=== PATIENT | male | born 1995 ===

== ENCOUNTER 2018-09-24 04:49 | Inpatient (IN) | payer SELFPAY ==
[2018-09-24 05:06] VITALS: BMI 26.6
--- NOTE | 2018-09-24 05:36 | ED PDOC ---
HPI: Psych/Substance Abuse Time Seen by Provider: 09/24/18 05:15 Chief Complaint (Nursing): Psychiatric Evaluation Chief Complaint (Provider): crisis eval History Per: Patient History/Exam Limitations: no limitations Suicide/Self Injury Attempted (Context): Ingestion Additional Complaint(s): 23 y/o male brought in by EMS for psych eval. Patient states he has been feeling depressed for months and yesterday attempted suicide by taking 5 Xanax 2mg tablets, 3 beers, and 10 shots of whiskey around 15:00 yesterday. Patient states he recently woke up and a friend suggested that he needed help. Patient states he wishes he didn't wake up. Patient denies homicidal ideations, hallucinations, acute physical complaints. Patient states he was diagnosed with bipolar disorder at 12 years old but did not follow up with anybody for it. Past Medical History Reviewed: Historical Data, Nursing Documentation, Vital Signs Vital Signs: Last Vital Signs Temp 98.7 F 09/24/18 05:06 Pulse 71 09/24/18 05:06 Resp 18 09/24/18 05:06 BP 155/97 H 09/24/18 05:06 Pulse Ox 99 09/24/18 05:06 - Medical History PMH: Bipolar Disorder - Surgical History Surgical History: No Surg Hx - Family History Family History: States: No Known Family Hx - Living Arrangements Living Arrangements: Alone - Social History Alcohol: > 2 Drinks/Day Drugs: Denies - Allergies Allergies/Adverse Reactions: Allergies Allergy/AdvReac Type Severity Reaction Status Date / Time No Known Allergies Allergy Verified 09/24/18 05:05 Review of Systems ROS Statement: Except As Marked, All Systems Reviewed And Found Negative Psych: Positive for: Depression, Suicidal ideation Physical Exam - Reviewed Nursing Documentation Reviewed: Yes Vital Signs Reviewed: Yes - Physical Exam Appears: Positive for: Well, Non-toxic, No Acute Distress Head Exam: Positive for: ATRAUMATIC, NORMAL INSPECTION, NORMOCEPHALIC Skin: Positive for: Normal Color Eye Exam: Positive for: Normal appearance ENT: Positive for: Normal ENT Inspection Cardiovascular/Chest: Positive for: Regular Rate, Rhythm Respiratory: Positive for: Normal Breath Sounds Gastrointestinal/Abdominal: Positive for: Normal Exam Back: Positive for: Normal Inspection Extremity: Positive for: Normal ROM Neurologic/Psych: Positive for: Alert, Oriented (x3) - ECG ECG: Positive for: Viewed By Me (reviewed by ED attending) ECG Rhythm: Positive for: Sinus Rhythm O2 Sat by Pulse Oximetry: 99 - Progress ED Course And Treament: -1:1 -cbc -cmp -alcohol -magnesium -salicylate -acetaminophen -urine drug screen -urinalysis -ekg -crisis evaluation Spoke with Magaly Power from poison control: recommends supportive care, obtain labs and correct electrolyte imbalance if any, and monitor for signs of withdrawal/agitation Disposition - Clinical Impression Clinical Impression: Suicide attempt - Disposition Disposition Time: 06:00 Condition: STABLE Forms: [employer] [facility] (Kiswahili) Patient Signed Over To: Jacky Bauman Handoff Comments: p'ing labs, crisis eval
--- NOTE | 2018-09-24 06:33 | ED PDOC ---
ED Additional Note - Date & Time of Evaluation Date of Evaluation: 09/24/18 Time of Evaluation: 07:00 - Physician Additional Note Physician Additional Note: Time: 0700 --Patient endorsed to Dr. Sanchez. Pending labs results, crisis evaluation, and re-evaluation. Scribe Attestation: Documented by Melinda Cade, acting as a scribe for Jacky Bauman MD. Provider Scribe Attestation: All medical record entries made by the Scribe were at my direction and personally dictated by me. I have reviewed the chart and agree that the record accurately reflects my personal performance of the history, physical exam, medical decision making, and the department course for this patient. I have also personally directed, reviewed, and agree with the discharge instructions and disposition.
[2018-09-24 08:23] LABS: BASO % 0.5 % (0.0-2.0); EOS # 0.1 K/uL (0.0-0.7); HEMOGLOBIN 16.2 g/dL (12.0-18.0); LYMPH # 1.8 K/uL (1.0-4.3); LYMPH % 33.5 % (20.0-40.0); MEAN CELL VOLUME 86.5 fl (80.0-94.0); MEAN CORPUSCULAR HEMOGLOBIN 28.7 pg (27.0-31.0); MEAN CORPUSCULAR HGB CONC 33.2 g/dL (33.0-37.0); MEAN PLATELET VOLUME 8.7 fl (7.2-11.7); MONO # 0.4 K/uL (0.0-0.8); NEUT # 3.1 K/uL (1.8-7.0); NRBC % 0.2 % (0.0-0.0); RBC 5.65 Mil/uL (4.40-5.90); RED CELL DISTRIBUTION WIDTH 13.1 % (11.5-14.5); WHITE BLOOD COUNT 5.4 K/uL (4.8-10.8)
[2018-09-24 08:35] LABS: ALB/GLOB RATIO 1.5 (1.0-2.1); ALBUMIN 4.8 g/dL (3.5-5.0); ALT/SGPT 27 U/L (21-72); AST/SGOT 31 U/L (17-59); BLOOD UREA NITROGEN 15 mg/dl (9-20); CALCIUM 10.1 mg/dL (8.4-10.2); GFR NON-AFRICAN AMERICAN > 60
[2018-09-24 08:37] LABS: ACETAMINOPHEN < 10.0 ug/ml (10.0-30.0); SALICYLATE < 1.0 mg/dl; SQUAMOUS EPITHIAL 7 /hpf (0-5); URINE BACTERIA RARE (<OCC); URINE BILIRUBIN NEGATIVE (NEGATIVE); URINE BLOOD NEGATIVE (NEGATIVE); URINE CLARITY CLOUDY (Clear); URINE COLOR YELLOW (YELLOW); URINE GLUCOSE (UA) NEG (NEGATIVE); URINE LEUKOCYTE ESTERASE TRACE Leu/uL (Negative); URINE PROTEIN 100 mg/dL (NEGATIVE)
[2018-09-24 08:43] LABS: BARBITURATES, UR NEGATIVE (NEGATIVE); BENZODIAZEPINES, UR POSITIVE (NEGATIVE)
[2018-09-24 09:08] LABS: OPIATES, UR NEGATIVE (NEGATIVE); PHENCYCLIDINE, UR NEGATIVE (NEGATIVE)
--- NOTE | 2018-09-24 10:07 | ED PDOC ---
- Laboratory Results Result Diagrams: 09/24/18 08:10 09/24/18 08:10 - ECG O2 Sat by Pulse Oximetry: 99 Medical Decision Making Medical Decision Making: Medically stable for psychiatric admission Disposition - Clinical Impression Clinical Impression: Suicide attempt, Depression - POA Present On Arrival: None - Disposition Disposition: Admitted as In-Patient Disposition Time: 10:06 Condition: FAIR Forms: [facility] (Pashto)
[2018-09-24] MEDS ORDERED: DiphenhydrAMINE 50 mg/ml Inj IM PRN (10:52)
[2018-09-24] MEDS ORDERED: Alum-Mag Hydrox-Simethicone Susp (30 mL) PO PRN (10:52)
[2018-09-24] MEDS ORDERED: Magnesium Hydroxide Susp 30 ml UD PO PRN (10:52)
[2018-09-24 11:27] VITALS: O2SAT 98
--- NOTE | 2018-09-24 14:37 | CP.PCM.CON ---
History of Present Illness - History of Present Illness History of Present Illness: 23 yo male with admitted to psyche unit because of depression and suicidal ideation. Review of Systems - Review of Systems All systems: reviewed and no additional remarkable complaints except (aside from those mentioned above, 12 point system review were negative by me) Past Patient History - Tetanus Immunizations Tetanus Immunization: Unknown - Past Social History Smoking Status: Heavy Smoker > 10 Cigarettes Daily Chewing Tobacco Use: No Cigar Use: No Alcohol: > 2 Drinks/Day Drugs: Cocaine - CARDIAC Hx Cardiac Disorders: No - PULMONARY Hx Tuberculosis: No - NEUROLOGICAL HX Cerebrovascular Accident: No Hx Seizures: No - HEMATOLOGICAL/ONCOLOGICAL Hx Cancer: No Hx Human Immunodeficiency Virus (HIV): No - GENITOURINARY/GYNECOLOGICAL Hx Sexually Transmitted Disorders: No - PSYCHIATRIC Hx Psychophysiologic Disorder: Yes Meds Allergies/Adverse Reactions: Allergies Allergy/AdvReac Type Severity Reaction Status Date / Time No Known Allergies Allergy Verified 09/24/18 05:05 - Medications Medications: Current Medications Acetaminophen (Tylenol 325mg Tab) 650 mg PO Q4 PRN PRN Reason: Pain, moderate (4-7) Al Hydrox/Mg Hydrox/Simethicone (Maalox Plus 30 Ml) 30 ml PO Q4 PRN PRN Reason: Dyspepsia Diphenhydramine HCl (Benadryl) 50 mg IM Q6 PRN PRN Reason: Extrapyramidal S/S Unable PO Diphenhydramine HCl (Benadryl) 50 mg PO Q6 PRN PRN Reason: Extrapyramidal Symptoms Folic Acid (Folic Acid) 1 mg PO DAILY ERMIAS Haloperidol (Haldol) 5 mg PO Q4 PRN PRN Reason: Agitation Haloperidol Lactate (Haldol) 5 mg IM Q4 PRN PRN Reason: Agitation, Unable to Take PO Lorazepam (Ativan) 2 mg IM Q4 PRN PRN Reason: Anxiety/Agitation,Unable PO Lorazepam (Ativan) 1 mg PO Q6 ERMIAS Lorazepam (Ativan) 1 mg PO Q8 PRN PRN Reason: withdrawal Magnesium Hydroxide (Milk Of Magnesia) 30 ml PO HS PRN PRN Reason: Constipation Multivitamins/Minerals (Therapeutic-M Tab) 1 tab PO DAILY ERMIAS Nicotine (Nicoderm Cq) 1 patch TD DAILY ERMIAS Thiamine HCl (Vitamin B1 Tab) 100 mg PO DAILY ERMIAS Physical Exam - Constitutional Appears: No Acute Distress - Head Exam Head Exam: ATRAUMATIC - Eye Exam Eye Exam: absent: Scleral icterus - ENT Exam ENT Exam: Mucous Membranes Moist - Neck Exam Neck exam: Negative for: Meningismus - Respiratory Exam Respiratory Exam: absent: Rales, Rhonchi, Wheezes, Respiratory Distress - Cardiovascular Exam Cardiovascular Exam: REGULAR RHYTHM, +S1, +S2 - GI/Abdominal Exam GI & Abdominal Exam: Soft. absent: Tenderness - Rectal Exam Rectal Exam: Deferred - Extremities Exam Extremities exam: Positive for: normal inspection - Neurological Exam Neurological exam: Alert, Oriented x3 - Psychiatric Exam Psychiatric exam: Normal Affect - Skin Skin Exam: Dry, Intact Results - Vital Signs Recent Vital Signs: Last Vital Signs Temp 97.8 F 09/24/18 11:25 Pulse 58 L 09/24/18 11:25 Resp 18 09/24/18 11:25 BP 124/69 09/24/18 11:25 Pulse Ox 98 09/24/18 11:25 - Labs Result Diagrams: 09/24/18 08:10 09/24/18 08:10 Labs: Laboratory Results - last 24 hr 09/24/18 09/24/18 09/24/18 08:10 08:10 08:10 WBC 5.4 RBC 5.65 Hgb 16.2 Hct 48.9 MCV 86.5 MCH 28.7 MCHC 33.2 RDW 13.1 Plt Count 217 MPV 8.7 Neut % (Auto) 57.0 Lymph % (Auto) 33.5 Lynn % (Auto) 8.0 Eos % (Auto) 1.0 Baso % (Auto) 0.5 Neut # (Auto) 3.1 Lymph # (Auto) 1.8 Lynn # (Auto) 0.4 Eos # (Auto) 0.1 Baso # (Auto) 0.0 Sodium 141 Potassium 3.8 Chloride 99 Carbon Dioxide 28 Anion Gap 18 BUN 15 Creatinine 1.0 Est GFR ( Amer) > 60 Est GFR (Non-Af Amer) > 60 Random Glucose 114 H Calcium 10.1 Magnesium 1.9 Total Bilirubin 1.1 AST 31 ALT 27 Alkaline Phosphatase 64 Total Protein 8.1 Albumin 4.8 Globulin 3.3 Albumin/Globulin Ratio 1.5 Urine Color Urine Clarity Urine pH Ur Specific [place] Urine Protein Urine Glucose (UA) Urine Ketones Urine Blood Urine Nitrate Urine Bilirubin Urine Urobilinogen Ur Leukocyte Esterase Urine RBC (Auto) Urine Microscopic WBC Ur Squamous Epith Cells Urine Bacteria Salicylates < 1.0 Urine Opiates Screen Urine Methadone Screen Acetaminophen < 10.0 L Ur Barbiturates Screen Ur Phencyclidine Scrn Ur Amphetamines Screen U Benzodiazepines Scrn U Oth Cocaine Metabols U Cannabinoids Screen Alcohol, Quantitative < 10 09/24/18 09/24/18 08:10 08:10 WBC RBC Hgb Hct MCV MCH MCHC RDW Plt Count MPV Neut % (Auto) Lymph % (Auto) Lynn % (Auto) Eos % (Auto) Baso % (Auto) Neut # (Auto) Lymph # (Auto) Lynn # (Auto) Eos # (Auto) Baso # (Auto) Sodium Potassium Chloride Carbon Dioxide Anion Gap BUN Creatinine Est GFR ( Amer) Est GFR (Non-Af Amer) Random Glucose Calcium Magnesium Total Bilirubin AST ALT Alkaline Phosphatase Total Protein Albumin Globulin Albumin/Globulin Ratio Urine Color Yellow Urine Clarity Cloudy Urine pH 5.0 Ur Specific [place] 1.030 Urine Protein 100 Urine Glucose (UA) Neg Urine Ketones 20 Urine Blood Negative Urine Nitrate Negative Urine Bilirubin Negative Urine Urobilinogen 1.0 Ur Leukocyte Esterase Trace Urine RBC (Auto) 2 Urine Microscopic WBC 5 Ur Squamous Epith Cells 7 H Urine Bacteria Rare Salicylates Urine Opiates Screen Negative Urine Methadone Screen Negative Acetaminophen Ur Barbiturates Screen Negative Ur Phencyclidine Scrn Negative Ur Amphetamines Screen Negative U Benzodiazepines Scrn Positive U Oth Cocaine Metabols Negative U Cannabinoids Screen Positive H Alcohol, Quantitative Assessment & Plan (1) Suicide attempt Status: Acute Comment: psyche is managing
--- NOTE | 2018-09-24 15:14 | PCM.BM ---
Treatment Plan Problems - Problems identified on initial assessmt hopelessness/Helplessness Date Initiated: 09/24/18 Time Initiated: 12:00 Assessment reference: NA Status: Active Priority: 1 Treatment assets and liabiliti Patient Assests: cooperative, self-reliant, ADL independent, physically healthy, good support system Patient Liabilities: financial problems, relationship conflicts, substance abuse, other - Milieu Protocol Maintain good personal hygiene: daily Encourage regular showers, daily Remind patient to perform daily oral care, daily Assist patient to perform ADL's Conduct patient checks and document Observation sheet: Q15 minutes Maintain personal safety: every shift Educate patient to report safety concerns to staff, every shift Monitor environment for contraband/sharps Medication safety: Monitor for expected outcome, potential side effects: daily, Assess barriers to learning: daily, Assess readiness for medication education: daily
--- NOTE | 2018-09-24 23:08 | CARD ---
APPROVED REPORT Date of service: 09/24/2018 EKG Measurement Heart [id number] <Conclusion> Normal sinus rhythm Normal ECG
[2018-09-25 08:20] LABS: T4 6.63 ug/dl (5.5-11.0)
[2018-09-25] MEDS: Multivitamin With Minerals Tab PO SCH (09:51)
--- NOTE | 2018-09-25 21:59 | PCM.PSYCH ---
Initial Psychiatric Evaluation - Initial Psychiatric Evaluation Chief Complaint (in patient's own words): had been drinking and took 10 tabs of alprazolam 1mg admittedly was impulsive act not planned Patient's Reaction to Hospitalization: signed in voluntarily but later requested a 48 hour notice History of Present Illness and Precipitating Events: per er records: took 5 xanax 2mg tablets, drank 3 pints of beer and 7 shots of [place] at 0300 09/23/2018. Patient woke up about 30 min ago. States that he has a history of Bipolar disorder diagnosed as a teenager, but has never been treated. PAtient placed on 1:1 observation in ER and upon admission pt was able to contract for safety. Carolyn, the patients mother, for collateral information. Carolyn lives in [place]. As per Carolyn, the patient alienated himself from the family. 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 The patient has been stealing throughout all these years, and has stolen from all his family members. Pt was living w/ his grandparents at one point, but stole from The patient received therapy as a young child. The patient tried medications, but he didnt do well w/ the medications due to the side effects. As per Carolyn, the patient was diagnosed w/ ADHD, as a child. Mental Illness runs in the family as per Carolyn. Pt currently feels alone, since he has no family support. Pt was admitted once at the age of [age] years old in [facility]. Carolyn would like her son admitted since he needs help. Pt admits to from his family. Pt reports stealing from his family over the yearsAt this time, pt states, I dont want to be alive, but I wish something bad would happen. Pt reports feeling alone, sad, and depressed. For the last 3 months, pt has been contemplating of hurting himself. 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 admits that drinks etoh approx. 4 nights out of 7, admits that does not drink "much" at work, does not drink in am to steady self (-CAGE). admits that had obtained alprazolam from primary provider. admits has sponsor for etoh. admits remorse, it was impulsive act, does not want to , wants to return to work. admittedly will return to sponsor. has support of parents (father reportedly is title inspector of [employer] for "many years". admits to recently losing "10,000$". " Current Medications: Active Medications Generic Name Dose Route Start Last Admin Trade Name Freq PRN Reason Stop Dose Admin Acetaminophen 650 mg 09/24/18 10:52 Tylenol 325mg Tab PO Q4 PRN Pain, moderate (4-7) Al Hydrox/Mg Hydrox/Simethicone 30 ml 09/24/18 10:52 Maalox Plus 30 Ml PO Q4 PRN Dyspepsia Diphenhydramine HCl 50 mg 09/24/18 10:52 Benadryl IM Q6 PRN Extrapyramidal S/S Unable PO Diphenhydramine HCl 50 mg 09/24/18 10:52 09/24/18 22:12 Benadryl PO 50 mg Q6 PRN Administration Extrapyramidal Symptoms Diphenhydramine HCl 50 mg 09/24/18 22:13 Benadryl PO HS PRN Sleep Folic Acid 1 mg 09/25/18 09:00 09/25/18 09:46 Folic Acid PO Not Given DAILY ERMIAS Haloperidol 5 mg 09/24/18 10:52 Haldol PO Q4 PRN Agitation Haloperidol Lactate 5 mg 09/24/18 10:52 Haldol IM Q4 PRN Agitation, Unable to Take PO Lorazepam 2 mg 09/24/18 10:52 Ativan IM Q4 PRN Anxiety/Agitation,Unable PO Lorazepam 1 mg 09/24/18 16:00 09/25/18 16:54 Ativan PO Not Given Q6 ERMIAS Lorazepam 1 mg 09/24/18 11:12 Ativan PO Q8 PRN withdrawal Magnesium Hydroxide 30 ml 09/24/18 10:52 Milk Of Magnesia PO HS PRN Constipation Multivitamins/Minerals 1 tab 09/25/18 09:00 09/25/18 09:51 Therapeutic-M Tab PO Not Given DAILY ERMIAS Nicotine 1 patch 09/24/18 13:45 09/25/18 12:49 Nicoderm Cq TD 1 patch DAILY ERMIAS Administration Prazosin HCl 1 mg 09/25/18 22:00 Minipress PO HS ERMIAS Quetiapine Fumarate 50 mg 09/25/18 22:00 Seroquel PO HS ERMIAS Thiamine HCl 100 mg 09/25/18 09:00 09/25/18 09:51 Vitamin B1 Tab PO Not Given DAILY ERMIAS Past Psychiatric History - Past Psychiatric History Prior Professional Help: admitted age +/- age 16 [facility] for violent behavior Explanation of prior treatment: approx. 3 suicide attempts in past, impulsive, not reported History of Abuse: denies History of ETOH/Drug Use: thc+ this admission, reports in past used intranasal cocaine last used reported "several years ago" History of Family Illness: father with history of etoh Pertinent Medical Hx (Current Medical&Sleep Prob, Allergies): Allergies Allergy/AdvReac Type Severity Reaction Status Date / Time No Known Allergies Allergy Verified 09/24/18 05:05 No Known Home Med 09/24/18 Review of Systems - Psychiatric Psychiatric: Irritability, Mood Swings, Suicidal Ideation Additional comments: admits gambling having Gambling Anonymous sponsor, past/recent gambling problem, recent [id number] loss Mental Status Examination - Affect Affect: Depressed - Motor Activity Motor Activity: Calm - Reliability in Providing Information Reliability in Providing Information: Fair - Speech Speech: Organized - Formal Thought Process Formal Thought Process: No Impairment - Obsessions/Compulsions Obsessions: Yes Compulsions: Yes Description of Obsession/Compulsion: gambling - Risk Risk: Suicidal, Diminished functioning - Strength & Assets Inventory Strength & Assets Inventory: Intelligence, Family support, Employment history (gambling adiction, use of etoh of fairly regular pattern, not following primary care/?psych in past hx of bipolargener), Cooperative DSM 5 DX - DSM 5 DSM 5 Diagnosis: hx bipolar illness sucide attempt poly substance use: etoh active, cannibus active sustance use: cocain reported remote use Obsessive/Compulsive Illness: Gambling -Active Family Circumstances Acute Stress: Ending of Relationship - Recommended/Plan of Treatment Treatment Recommendations and Plan of Treatment: inpt admission per attending vital signs and clinical observation per protocol and per clinical status prns per unit protocol hospitalist consult pt has submitted a 48 hour notice-explained to patient significance : given patient's presentation (suicide attempt/substance use) will have patient screened Screening was explained to patient and was verbally agreeable Pt defers medication-explained bipolar dx. hx.-pt defers, review obsessive compulsive dx-gambling possible use of ssri-pt defers, review with pt. possble use of vivitrol/campral pt defers. review taking multi vitamin with b12/folate 2nd frequent etoh Projected ELOS: 5-7 days Prognosis: gaurded Discharge Plan and Discharge Criteria: safety - Smoking Cessation Smoking Cessation Initiated: No Reason for not providing: pt defers
[2018-09-26] MEDS: Multivitamin With Minerals Tab PO SCH (08:35)
[2018-09-26 09:14] VITALS: BP 128/74; PULSE 64; RESP 18; TEMP 96.1
--- NOTE | 2018-09-26 13:48 | PCM.PYCHDC ---
Mental Status Examination - Mental Status Examination Orientation: Person, Place, Situation, Time Memory: Intact Mood: Neutral Affect: Broad Attention: WNL Concentration: WNL Fund of Knowledge: WNL Formal Thought Process: No Impairment Description of patient's judgement and insight: improved Psychotic Thoughts and Behaviors: denied Suicidal Ideation: No Current Homicidal Ideation?: No Discharge Summary - Discharge Note Reason for Hospitalization: signed in voluntarily but later requested a 48 hour notice Psychiatric History (includes Medical, Family, Personal Hx): presented to er w/suicide attempt, reported as impulsive/context sub use Laboratory Data: Abnormal Lab Results 09/25/18 09/25/18 06:45 06:45 Hemoglobin A1c 5.5 RPR Nonreactive Consultations:: List each consultation separately and include: 1. Reason for request. 2. Findings. 3. Follow-up Consultations: pt was seen by hospitalist Summary of Hospital Course include:: 1. Description of specific treatment plan utilized for patients during their course of treatmen. 2. Summarize the time- course for resolution of acute symptoms and/or regressed behaviors. 3. Describe issues identified and worked on during hospitalization. 4. Describe medication utilized. 5. Describe medical problems identified and treated. 6. Reassessment of suicide risk Summary of Hospital Course: pt was admitted to [facility] on a voluntary basis after presentation to [facility] ER suicide attempt: taking 10mg alprazolam with etoh use. pt deferred medication and submitted a 48 hour notice -was calm, appeared open to psychoeducation- verbally agreeable to being screened by [facility]. was seen by hospitalist. was calm on unit. denied s/s of etoh w/d, did not receive any prns/. pt was screened by [facility] today and was deemed not to meet involuntary commitment criteria. pt. received information related to [facility] per er records: took 5 xanax 2mg tablets, drank 3 pints of beer and 7 shots of [place] at 0300 09/23/2018. Patient woke up about 30 min ago. States that he has a history of Bipolar disorder diagnosed as a teenager, but has never been treated. PAtient placed on 1:1 observation in ER and upon admission pt was able to contract for safety. Carolyn, the patients mother, for collateral information. Carolyn lives in [place]. As per Carolyn, the patient alienated himself from the family. 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 The patient has been stealing throughout all these years, and has stolen from all his family members. Pt was living w/ his grandparents at one point, but stole from The patient received therapy as a young child. The patient tried medications, but he didnt do well w/ the medications due to the side effects. As per Carolyn, the patient was diagnosed w/ ADHD, as a child. Mental Illness runs in the family as per Carolyn. Pt currently feels alone, since he has no family support. Pt was admitted once at the age of [age] years old in [facility]. Carolyn would like her son admitted since he needs help. Pt admits to from his family. Pt reports stealing from his family over the yearsAt this time, pt states, I dont want to be alive, but I wish something bad would happen. Pt reports feeling alone, sad, and depressed. For the last 3 months, pt has been contemplating of hurting himself. 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 admits that drinks etoh approx. 4 nights out of 7, admits that does not drink "much" at work, does not drink in am to steady self (-CAGE). admits that had obtained alprazolam from primary provider. admits has sponsor for etoh. admits remorse, it was impulsive act, does not want to , wants to return to work. admittedly will return to sponsor. has support of parents (father reportedly is museum archivist of [employer] for "many years". admits to recently losing "10,000$". " - Final Diagnosis (DSM 5) Condition upon Discharge: FAIR Disposition: HOME/ ROUTINE Follow-up Treatment Plan: inpt admission per attending vital signs and clinical observation per protocol and per clinical status prns per unit protocol hospitalist consult pt has submitted a 48 hour notice-explained to patient significance : given patient's presentation (suicide attempt/substance use) will have patient screened Screening was explained to patient and was verbally agreeable Pt defers medication-explained bipolar dx. hx.-pt defers, review obsessive compulsive dx-gambling possible use of ssri-pt defers, review with pt. possble use of vivitrol/campral pt defers. review taking multi vitamin with b12/folate 2nd frequent etoh - Smoking Cessation Smoking Cessation Medication prescribed: No Reason for not providing: deferred - Antipsychotic Medications Pt discharged on 2 or more routine antipsychotic medications: No - Justification for 2 or more meds Augmentation of Clozapine: Yes (did not receive augmentation /medications)
[2018-09-26 17:24] LABS: FOLATE 8.3 ng/mL
== END 2018-09-26 14:30 | disposition home or self-care (01) | DRG 885 ==
LOC: H.ER 04:49 → H.ERHOLD 10:06 → H.PSYCH 11:31
PROVIDERS: ADMIT Psychiatry & Neurology Psychiatry; ATTEND Psychiatry & Neurology Psychiatry
PROC: GZHZZZZ Group Psychotherapy (ICD-10-PCS; principal; 2018-09-24)
DX: F31.9 Bipolar disorder, unspecified (principal); R45.851 Suicidal ideations; F17.210 Nicotine dependence, cigarettes, uncomplicated; Z72.89 Other problems related to lifestyle; F12.20 Cannabis dependence, uncomplicated